=== PATIENT | male | born 1990 | race Caucasian/White ===

== ENCOUNTER 2024-12-23 15:53 | Emergency (ER) | payer BC ==
[2024-12-23] MEDS: Lidocaine 4% Patch TOP ONE (16:32)
[2024-12-23] MEDS: Ketorolac 30 MG/ML SDV IM ONE (16:32)
[2024-12-23] MEDS: Acetaminophen 325 MG Tab PO ONE (16:32)
[2024-12-23] MEDS ORDERED: Sodium Chloride 0.9% 10 ML Syringe FLUSH PRN (16:33)
[2024-12-23] MEDS ORDERED: Sodium Chloride 0.9% 2.5 ML Syringe FLUSH PRN (16:33)
[2024-12-23] MEDS: Ketorolac 30 MG/ML SDV IVPUSH ONE (16:43)
[2024-12-23] MEDS: Sodium Chloride 0.9% 1,000 ML IV STA (16:44)
[2024-12-23 17:04] LABS: BASOPHILS ABSOLUTE AUTO 0.04 K/uL (0.00-0.20); BASOPHILS PERCENT AUTO 0.4 % (0.0-1.0); EOSINOPHILS ABSOLUTE AUTO 0.36 K/uL (0.00-0.45); EOSINOPHILS PERCENT AUTO 3.6 % (0.0-6.0); HEMATOCRIT 43.4 % (42.0-52.0); HEMOGLOBIN 14.8 g/dL (14.0-18.0); IMMATURE GRAN ABSOLUTE AUTO 0.02 K/uL (0.00-0.05); IMMATURE GRAN PERCENT AUTO 0.2 % (0.0-0.4); LYMPHOCYTES ABSOLUTE AUTO 2.47 K/uL (1.00-4.80); LYMPHOCYTES PERCENT AUTO 24.9 % (24.0-44.0); MEAN CORPUSCULAR HGB CONC 34.1 g/dL (32.0-36.0); MEAN CORPUSCULAR VOLUME 85.1 fL (83.0-99.0); MEAN PLATELET VOLUME 10.2 fL (9.4-12.4); MONOCYTES ABSOLUTE AUTO 0.72 K/uL (0.00-0.80); MONOCYTES PERCENT AUTO 7.3 % (0.0-8.0); NEUTROPHILS PERCENT AUTO 63.6 % (41.0-71.0); PLATELET COUNT,PLT 241 K/uL (150-400); WHITE BLOOD CELL COUNT,WBC 9.91 K/uL (3.9-11.3)
[2024-12-23 17:26] LABS: A/G RATIO 1.2 (0.9-1.6); CALCIUM 8.9 mg/dL (8.5-10.1); CARBON DIOXIDE,CO2 26.1 mmol/L (21.0-32.0); CREATININE 1.2 mg/dL (0.8-1.3); EST CRCL DRUG DOSING (CG) 96.1 mL/min; POTASSIUM,K 3.5 mmol/L (3.5-5.1); PROTEIN TOTAL,TP 7.4 g/dL (6.4-8.2)
== END 2024-12-23 18:00 | disposition home or self-care (01) ==
LOC: MW.ED 15:53
DX: S46.811A Strain of other muscles, fascia and tendons at shoulder and upper arm level, right arm, initial encounter (principal); S46.812A Strain of other muscles, fascia and tendons at shoulder and upper arm level, left arm, initial encounter; M54.2 Cervicalgia; M54.6 Pain in thoracic spine; Z75.8 Other problems related to medical facilities and other health care; X58.XXXA Exposure to other specified factors, initial encounter
CPT/HCPCS: 36415; 80053; 82550; 85025; 87428; 96372; 99284; A9270; J1885; J7030